=== PATIENT | female | born 1990 | race Caucasian/White ===

== ENCOUNTER 2019-05-22 18:02 | Emergency (ER) | payer OTHER ==
[~2019-05-22] VITALS: Ht 162.6 cm; Wt 109.1 kg
[2019-05-22] MEDS ORDERED: normal saline 1000ML IV soln IVB ONE (18:25)
[2019-05-22] MEDS ORDERED: diphenhydrAMINE 50 mg/ml inj IV ONE (18:25)
[2019-05-22] MEDS ORDERED: methylPREDNISolone sod succ 125mg/2ml vial IV ONE (18:25)
--- NOTE | 2019-05-22 18:55 | NUR ---
Pt feeling better, no more CP or SOB. Welts are diminishing.
[2019-05-22] MEDS ORDERED: PRED20TA PO (19:15)
[2019-05-22 19:24] VITALS: BP 133/86
== END 2019-05-22 19:29 | disposition home or self-care (01) ==
LOC: ER 18:03
DX: T78.40XA Allergy, unspecified, initial encounter (principal); L50.9 Urticaria, unspecified; R07.2 Precordial pain; Z88.2 Allergy status to sulfonamides; Z91.040 Latex allergy status; Z91.018 Allergy to other foods; Z79.899 Other long term (current) drug therapy; X58.XXXA Exposure to other specified factors, initial encounter; Y93.89 Activity, other specified; Y92.89 Other specified places as the place of occurrence of the external cause; Y99.8 Other external cause status
CPT/HCPCS: 96374; 96375; 99283; J1200; J2930; J7030